=== PATIENT | female | born 1940 | race Caucasian/White ===

== ENCOUNTER 2017-08-01 08:38 | Emergency (ER) | payer MEDICARE, BC ==
[2017-08-01] MEDS ORDERED: DIPH/PERTUSS(ACELL)/TETANUS VAC/PF 0.5 ML SYR (>=10YO) IM ONE ×2 (09:30→10:03)
--- NOTE | 2017-08-01 09:31 | ER Document Report ---
ED Medical Screen (RME) - General Chief Complaint: Head Injury without LOC Stated Complaint: HEAD LACERATION Time Seen by Provider: 08/01/17 09:29 Notes: RME DISCLOSURE I have seen this patient as part of a Rapid Medical Evaluation and, if applicable, placed any initially appropriate orders. The patient will be seen and fully evaluated, including a full history and physical exam, by a provider ( in Main ED or Fast Track) when a room becomes available. 77-year-old female tripped at home just prior to arrival and fell down hitting her head on the floor. She did not have any loss of consciousness. She does not take any blood thinners. Her last tetanus shot was many years ago. She does not complain of any pain other than where she hit her head. - Related Data Allergies/Adverse Reactions: Cephalosporins Allergy (Verified 08/01/17 08:39) Physical Exam - Vital signs Vitals: Temp Pulse Resp BP Pulse Ox 98.3 F 89 18 166/81 H 98 08/01/17 08:58 08/01/17 08:58 08/01/17 08:58 08/01/17 08:58 08/01/17 08:58 Course - Vital Signs Vital signs: Temp Pulse Resp BP Pulse Ox 98.3 F 89 18 166/81 H 98 08/01/17 08:58 08/01/17 08:58 08/01/17 08:58 08/01/17 08:58 08/01/17 08:58
[2017-08-01] MEDS ORDERED: LIDOCAINE 1% INJ-PF (10 MG/ML) 30 ML SDV INJ ONE (10:00)
[2017-08-01] MEDS ORDERED: BACITRACIN ZINC OINTMENT 15 GM TP ONE (10:03)
--- NOTE | 2017-08-01 10:03 | ER Document Report ---
ED General - General Chief Complaint: Head Injury without LOC Stated Complaint: HEAD LACERATION Time Seen by Provider: 08/01/17 09:29 Notes: 77-year-old lady with Parkinson's presents with posterior mild headache without neck pain sudden onset after a fall where she tripped over a rug and hit her head on a coffee table. Small laceration. Denies neck pain numbness tingling. Evaluated in triage. Head and C-spine CT ordered. No blood thinners. Tetanus is greater than 5 years. - Related Data Allergies/Adverse Reactions: Cephalosporins Allergy (Verified 08/01/17 08:39) Past Medical History - Social History Smoking Status: Never Smoker Chew tobacco use (# tins/day): No Frequency of alcohol use: None Drug Abuse: None Lives with: Spouse/Significant other Family History: None Patient has suicidal ideation: No Patient has homicidal ideation: No Renal/ Medical History: Denies: Hx Peritoneal Dialysis Past Surgical History: Reports: Hx Breast Surgery - non-malingant tumor removed Review of Systems - Review of Systems Notes: REVIEW OF SYSTEMS GEN: Denies fever, chills, weight loss ENT: Denies sore throat, nasal discharge, ear pain EYES: Denies blurry vision, eye pain, discharge CV: Denies chest pain, palpitations, edema RESP: Denies cough, shortness of breath, wheezing GI: Denies abdominal pain, nausea, vomiting, diarrhea MSK: Denies joint pain/swelling, edema, SKIN: Denies rash, skin lesions LYMPH: Denies swollen glands/lymph nodes NEURO: Mild headache, focal weakness or numbness, dizziness PSYCH: Denies depression, suicidal or homicidal ideation PHYSICAL EXAMINATION General: No acute distress, well-nourished Head: Vertical occipital laceration with hematoma about 2 cm normocephalic ENT: Mouth normal, oropharynx moist, no exudates or tonsillar enlargement Eyes: Conjunctiva normal, pupils equal, lids normal Neck: No JVD, supple, no guarding CVS: Normal rate, regular rhythm, no murmurs Resp: No resp distress, equal and normal breath sounds bilaterally GI: Nondistended, soft, no tenderness to palpation, no rebound or guarding Ext: No deformities, no edema, normal range of motion in upper and lower ext Back: No CVA or midline TTP Skin: No rash, warm Lymphatic: No lymphadeopathy noted Neuro: Awake, alert. Face symmetric. GCS 15. Physical Exam - Vital signs Vitals: Temp Pulse Resp BP Pulse Ox 98.3 F 89 18 166/81 H 98 08/01/17 08:58 08/01/17 08:58 08/01/17 08:58 08/01/17 08:58 08/01/17 08:58 Course - Re-evaluation Re-evalutation: 08/01/17 10:02 Fall from standing for Parkinson's with evidence of head trauma. CT head and neck pending. We will update tetanus, clean and repair wound with bacitracin. No syncope, I do not think she needs a full workup for this. - Vital Signs Vital signs: Temp Pulse Resp BP Pulse Ox 98.3 F 89 18 166/81 H 98 08/01/17 08:58 08/01/17 08:58 08/01/17 08:58 08/01/17 08:58 08/01/17 08:58 - Diagnostic Test Radiology reviewed: Image reviewed, Reports reviewed Procedures - Laceration/Wound Repair Right Posterior Head Time completed: 20:25 Wound length (cm): 3 Wound's Depth, Shape: Into muscle, Irregular, Stellate Laceration pre-procedure: Betadine prep applied Anesthetic type: 1% Lidocaine Volume Anesthetic (mLs): 5 Wound explored: Clean Irrigated w/ Saline (mLs): 100 Wound Debrided: Minimal Wound Repaired With: [place] - 6 Number of Sutures: 6 Layer Closure?: No Discharge - Discharge Clinical Impression: Fall from standing Scalp laceration Qualifiers: Encounter type: initial encounter Qualified Code(s): S01.01XA - Laceration without foreign body of scalp, initial encounter Condition: Good Disposition: HOME, SELF-CARE Instructions: Antibiotic Ointment Protection ([facility]), Concussion ([facility]), Tetanus Immunization Given ([facility]) Additional Instructions: Please follow-up with your primary care provider within 7 days. Your romeo will need to be removed in 10 days.
--- NOTE | 2017-08-01 10:05 | RADIOLOGY REPORT (SQ) ---
EXAM DESCRIPTION: CT HEAD WITHOUT COMPLETED DATE/TIME: 08/01/2017 9:57 am REASON FOR STUDY: s/p fall; eval head bleed COMPARISON: None. TECHNIQUE: Axial images acquired through the brain without intravenous contrast. Images reviewed wi th bone, brain and subdural windows. Additional sagittal and coronal reconstructions were generated. Images stored on PACS. All CT scanners at this facility use dose modulation, iterative reconstruction, and/or weight based d osing when appropriate to reduce radiation dose to as low as reasonably achievable (ALARA). [facility]: Dose Right [facility]: CareDose [facility]: Dose Right [facility]: Teradose 4D [facility]: [employer] RADIATION DOSE: CT Rad equipment meets quality standard of care and radiation dose reduction techniq ues were employed. CTDIvol: 53.2 mGy. DLP: 1097 mGy-cm. mGy. LIMITATIONS: None. FINDINGS: VENTRICLES: Normal size and contour. CEREBRUM: No masses. No hemorrhage. No midline shift. No evidence for acute infarction. Normal gra y/white matter differentiation. No areas of low density in the white matter. CEREBELLUM: No masses. No hemorrhage. No alteration of density. No evidence for acute infarction. EXTRAAXIAL SPACES: No fluid collections. No masses. ORBITS AND GLOBE: No intra- or extraconal masses. Normal contour of globe without masses. CALVARIUM: No fracture. PARANASAL SINUSES: No fluid or mucosal thickening. SOFT TISSUES: Acute right parietal scalp hematoma without underlying skull fracture or acute intracra nial changes OTHER: No other significant finding. IMPRESSION: Acute right parietal scalp hematoma without underlying skull fracture or acute intracran ial changes EVIDENCE OF ACUTE STROKE: NO. COMMENT: Quality ID # 436: Final reports with documentation of one or more dose reduction techniques (e.g., Automated exposure control, adjustment of the mA and/or kV according to patient size, use of iterative reconstruction technique) TECHNICAL DOCUMENTATION: JOB ID: [id number] [employer]- All Rights Reserved Reading location - IP/workstation name: [email or web address]
--- NOTE | 2017-08-01 10:13 | RADIOLOGY REPORT (SQ) ---
EXAM DESCRIPTION: CT CERVICAL SPINE WITHOUT COMPLETED DATE/TIME: 08/01/2017 9:57 am REASON FOR STUDY: s/p fall COMPARISON: None. TECHNIQUE: Axial images acquired through the cervical spine without intravenous contrast. Images re viewed with lung, soft tissue and bone windows. Reconstructed coronal and sagittal MPR images review ed. Images stored on PACS. All CT scanners at this facility use dose modulation, iterative reconstruction, and/or weight based d osing when appropriate to reduce radiation dose to as low as reasonably achievable (ALARA). [facility]: Dose Right [facility]: CareDose [facility]: Dose Right [facility]: Teradose 4D [facility]: [employer] RADIATION DOSE: CT Rad equipment meets quality standard of care and radiation dose reduction techniq ues were employed. CTDIvol: 5.7 mGy. DLP: 96 mGy-cm. mGy. LIMITATIONS: Streak artifact through the C3 level from metallic dental work FINDINGS: ALIGNMENT: Anatomic. MINERALIZATION: Normal. VERTEBRAL BODIES: No fractures or dislocation. DISCS: Disc space loss of height at C4-5, C5-6, and C6-7. No high-grade central or bony foraminal st enosis. FACETS, LATERAL MASSES, POSTERIOR ELEMENTS: No fractures. No dislocation. No acute findings. HARDWARE: None in the spine. VISUALIZED RIBS: No fractures. LUNG APICES AND SOFT TISSUES: No significant or acute findings. OTHER: On the left side, at the C3-4 neural foramen, there is a well-circumscribed soft tissue mass w ith benign-appearing remodeling of the lateral edge left C3 vertebral body and ventral edge left C3 f acet. This measures 16 x 12 mm in size with central increased density. This could represent a cervi сергей nerve root schwannoma. Tortuous left vertebral artery is possible but considered less likely. T his does not represent an acute traumatic finding IMPRESSION: NO ACUTE FINDINGS IN THE CERVICAL SPINE. 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 Torturous left vertebral artery could also caus e this appearance TECHNICAL DOCUMENTATION: JOB ID: [id number] Quality ID # [id number]: Final reports with documentation of one or more dose reduction techniques (e.g., Au tomated exposure control, adjustment of the mA and/or kV according to patient size, use of iterative reconstruction technique) 2010 [employer]- All Rights Reserved Reading location - IP/workstation name: [email or web address]
[2017-08-01 11:45] VITALS: BP 149/69
== END 2017-08-01 11:45 | disposition home or self-care (01) ==
LOC: ER 08:38
PROC: 0HQ0XZZ Repair Scalp Skin, External Approach (ICD-10-PCS; principal; 2017-08-01)
DX: S01.01XA Laceration without foreign body of scalp, initial encounter (principal); R51 Headache; W01.190A Fall on same level from slipping, tripping and stumbling with subsequent striking against furniture, initial encounter; Y92.009 Unspecified place in unspecified non-institutional (private) residence as the place of occurrence of the external cause; G20 Parkinson's disease; Z23 Encounter for immunization
CPT/HCPCS: 99284; 90471; 70450; 72125; 90715; 12004; J3490

== ENCOUNTER 2019-08-05 18:18 | Emergency (ER) | payer MEDICARE, BC ==
--- NOTE | 2019-08-05 20:07 | ER Document Report ---
ED General - General Chief Complaint: Fall Injury Stated Complaint: FALL/LACERATION TO HEAD Time Seen by Provider: 08/05/19 19:19 Primary Care Provider: ALDEN MAYER MD [Primary Care Provider] - Follow up as needed Mode of Arrival: Ambulatory Information source: Patient TRAVEL OUTSIDE OF THE [place] IN LAST 30 DAYS: No - HPI Onset: Just prior to arrival Onset/Duration: Sudden Quality of pain: Burning, Pressure Severity: Moderate Pain Level: 2 Associated symptoms: Other - bleeding from scalp Exacerbated by: Other - palpation of swollen area on head Similar symptoms previously: No Recently seen / treated by doctor: No Notes: 79 year old female with a history of Parkinson's Disease here in the ER for evaluation after a mechanical fall resulting in her falling backward and hitting her head on a hardwood floor. The patient denies LOC, nausea, vomiting, dizziness, vision changes. The patient is not on any blood thinners. - Related Data Allergies/Adverse Reactions: Cephalosporins Allergy (Verified 08/05/19 18:35) Past Medical History - General Information source: Patient - Social History Smoking Status: Never Smoker Chew tobacco use (# tins/day): No Frequency of alcohol use: None Drug Abuse: None Family History: None Patient has suicidal ideation: No Patient has homicidal ideation: No Neurological Medical History: Reports: Hx Parkinson's Disease Renal/ Medical History: Denies: Hx Peritoneal Dialysis Past Surgical History: Reports: Hx Breast Surgery - non-malingant tumor removed Review of Systems - Review of Systems Constitutional: No symptoms reported EENT: No symptoms reported Cardiovascular: No symptoms reported Respiratory: No symptoms reported Gastrointestinal: No symptoms reported Genitourinary: No symptoms reported Female Genitourinary: No symptoms reported Musculoskeletal: No symptoms reported Skin: Other - swollen area on back top of head which is bleeding some Hematologic/Lymphatic: No symptoms reported Neurological/Psychological: No symptoms reported -: Yes All other systems reviewed and negative Physical Exam - Vital signs Vitals: Temp Pulse Resp BP Pulse Ox 98.2 F 102 H 20 157/88 H 98 08/05/19 18:23 08/05/19 18:23 08/05/19 18:23 08/05/19 18:23 08/05/19 18:23 - Notes Notes: GENERAL: Well-appearing, well-nourished and in no acute distress. HEAD: Posterior scalp with golf ball sized swelling with abrasion of skin over the swollen area. No lacerations present. Normocephalic. EYES: Pupils equal round and reactive to light, extraocular movements intact, sclera anicteric, conjunctiva are normal. ENT: Nares patent, oropharynx clear without exudates. Moist mucous membranes. NECK: Normal range of motion, supple without lymphadenopathy or JVD. LUNGS: Breath sounds clear to auscultation bilaterally and equal. No wheezes rales or rhonchi. HEART: Regular rate and rhythm without murmurs, rubs or gallops. ABDOMEN: Soft, nontender, normoactive bowel sounds. No guarding, no rebound. No masses appreciated. EXTREMITIES: Normal range of motion, no pitting or edema. No clubbing or cyanosis. NEUROLOGICAL: Cranial nerves II through XII grossly intact. Normal speech, normal gait. PSYCH: Normal mood, normal affect. SKIN: Warm, Dry, normal turgor, no rashes or lesions noted. Course - Re-evaluation Re-evalutation: 08/05/19 20:13 The patient had a mechanical fall resulting in minor head trauma (scalp contusion/hematoma with abrasion over the affected area). The patient hit the back of her head on a hardwood floor. CT shows no acute process. Patient's scalp does not need repair with sutures or romeo since bleeding area was from an abrasion/contusion alone. The patient's tetanus is up to date per her report. - Vital Signs Vital signs: Temp Pulse Resp BP Pulse Ox 98.2 F 102 H 20 157/88 H 98 08/05/19 18:23 08/05/19 18:23 08/05/19 18:23 08/05/19 18:23 08/05/19 18:23 - Diagnostic Test Radiology reviewed: Image reviewed, Reports reviewed Discharge - Discharge Clinical Impression: Hematoma of scalp Qualifiers: Encounter type: initial encounter Qualified Code(s): S00.03XA - Contusion of scalp, initial encounter Scalp abrasion Qualifiers: Encounter type: initial encounter Qualified Code(s): S00.01XA - Abrasion of scalp, initial encounter Condition: Stable Disposition: HOME, SELF-CARE Instructions: Abrasions ([facility]), Scalp Hematoma ([facility]) Additional Instructions: Ice your head to help with swelling. Use tylenol for pain. Consider using a nonstick bandage on your head until the wound starts to heal. Follow up with your primary care doctor. Referrals: ALDEN MAYER MD [Primary Care Provider] - Follow up as needed
--- NOTE | 2019-08-05 20:20 | RADIOLOGY REPORT (SQ) ---
EXAM DESCRIPTION: CT HEAD WITHOUT IV CONTRAST COMPLETED DATE/TME: 08/05/2019 19:40 CLINICAL HISTORY: 79 years, Female, eval for head trauma after a fall; head pain COMPARISON: Prior CT head performed on 08/01/2017 TECHNIQUE: Noncontrast CT head was acquired. Coronal and sagittal reformations were created. Images stored on PACS. All CT scanners at this facility use dose modulation, iterative reconstruction, and/or weight based dosing when appropriate to reduce radiation dose to as low as reasonably achievable (ALARA). [facility]: Dose Right [facility]: CareDose [facility]: Dose Right [facility]: Teradose 4D [facility]: [employer] LIMITATIONS: None. FINDINGS: Evaluation of the brain parenchyma reveals mild periventricular and patchy subcortical white matter low attenuation. No acute intracranial hemorrhage, mass effect, or extra-axial fluid is seen. The ventricles and sulcal spaces are mildly enlarged. Globes and orbits show no acute abnormality. Paranasal sinuses and mastoid air cells are clear. Calcifications are noted about the parasellar carotid arteries. No depressed skull fractures. However, there is a small right posterior parietal scalp soft tissue hematoma located towards the vertex. IMPRESSION: No acute intracranial abnormality. Mild chronic microvascular ischemic change with generalized atrophy. Small left right posterior parietal scalp hematoma located towards the vertex. TECHNICAL DOCUMENTATION: Quality ID # 436: Final reports with documentation of one or more dose reduction techniques (e.g., Automated exposure control, adjustment of the mA and/or kV according to patient size, use of iterative reconstruction technique) copyright 2011 [employer]- All Rights Reserved
[2019-08-05 21:05] VITALS: BP 147/74
== END 2019-08-05 21:03 | disposition home or self-care (01) ==
LOC: ER 18:18
DX: S00.03XA Contusion of scalp, initial encounter (principal); S00.01XA Abrasion of scalp, initial encounter; W01.0XXA Fall on same level from slipping, tripping and stumbling without subsequent striking against object, initial encounter; Y93.89 Activity, other specified; G20 Parkinson's disease; Z88.1 Allergy status to other antibiotic agents
CPT/HCPCS: 70450; 99283